=== PATIENT | female | born 2000 | race Caucasian/White ===

== ENCOUNTER → 2018-05-12 | Outpatient (CLI) | payer MEDICAID | END | disposition home or self-care (01) | LOC: U/S 15:06 | DX: O36.70X0 Maternal care for viable fetus in abdominal pregnancy, unspecified trimester, not applicable or unspecified (principal); Z3A.00 Weeks of gestation of pregnancy not specified | CPT/HCPCS: 76801 ==

== ENCOUNTER 2018-08-21 10:59 | Inpatient (IN) | payer MEDICAID ==
[2018-08-21] MEDS ORDERED: MISOPROSTOL 200 MCG TAB PR ×2 (11:30→18:00)
[2018-08-21] MEDS ORDERED: METHYLERGONOVINE 0.2 MG INJ IM ×2 (11:30→18:00)
[2018-08-21] MEDS ORDERED: CARBOPROST 250 MCG INJ IM ×2 (11:30→18:00)
[2018-08-21] MEDS: LACTATED RINGER'S 1,000 ML IV ×2 (11:32→18:09)
[2018-08-21 11:55] LABS: ADD MAN DIFF? NO
[2018-08-21 12:07] LABS: BASOPHILS % 0.2 % (0.0-2.0); EOSINOPHILS # 0.1 10^3/ul (0.0-0.5); EOSINOPHILS % 0.5 % (0.0-7.0); HEMATOCRIT 38.8 % (37.0-47.0); HEMOGLOBIN 12.9 g/dl (12.0-16.0); LYMPHOCYTES # 1.8 10^3/ul (0.8-2.9); LYMPHOCYTES % 18.9 % (18.0-55.0); MEAN CORPUSCULAR HEMOGLOBIN 30.1 pg (29.0-33.0); MEAN CORPUSCULAR HGB CONC 33.2 g/dl (32.0-37.0); MEAN CORPUSCULAR VOLUME 90.7 fl (72.0-104.0); MEAN PLATELET VOLUME 9.5 fl (7.4-10.4); MONOCYTE # 0.5 10^3/ul (0.3-0.9); MONOCYTES % 5.6 % (0.0-13.0); PLATELET COUNT 208 10^3/UL (140-415); RED BLOOD COUNT 4.28 10^6/ul (4.20-5.40); RED CELL DISTRIBUTION WIDTH 13.6 % (11.5-14.5)
[2018-08-21 12:07] LABS: WHITE BLOOD COUNT 9.5 10^3/ul (4.8-10.8)
[2018-08-21 12:20] LABS: INR 0.86; PROTIME 11.8 Sec (11.9-14.9); PT RATIO 0.9
[2018-08-21 12:21] LABS: PARTIAL THROMBOPLASTIN TIME 28.1 Sec (23.0-35.0)
[2018-08-21 12:59] LABS: HEPATITIS B SURFACE ANTIGEN NEGATIVE (NEGATIVE)
[2018-08-21] MEDS: CITRIC ACID/NA CITRATE 30 ML CUP PO (13:28)
[2018-08-21] MEDS: GENTAMICIN 80 MG/NS (PMX) 50 ML IVPB (13:29)
[2018-08-21] MEDS ORDERED: METOCLOPRAMIDE 10 MG INJ (14:16)
[2018-08-21] MEDS ORDERED: morphine SULFATE/PF (10 MG/10 ML) INJ (14:16)
[2018-08-21] MEDS ORDERED: KETOROLAC 30 MG INJ (14:16)
[2018-08-21] MEDS ORDERED: ONDANSETRON 4 MG INJ (14:16)
[2018-08-21] MEDS ORDERED: OXYTOCIN 30 UNITS/LR 500 ML IV ×3 (14:16→18:00)
[2018-08-21] MEDS: CLINDAMYCIN 900 MG/D5W (PMX) 50 ML IVPB ×2 (14:20→21:37)
[2018-08-21] MEDS: OXYTOCIN 30 UNITS/LR 500 ML IV (15:17)
[2018-08-21] MEDS ORDERED: KETOROLAC 30 MG INJ IV (15:30)
[2018-08-21] MEDS ORDERED: DIPHENHYDRAMINE 50 MG INJ IV ×2 (15:30→16:00)
[2018-08-21] MEDS ORDERED: ONDANSETRON 4 MG INJ IV ×2 (15:30→16:00)
[2018-08-21] MEDS ORDERED: morphine (1 MG/ML) 10ML SYRINGE IV ×3 (15:30)
[2018-08-21] MEDS ORDERED: NALOXONE (0.4 MG/ML) INJ IV (16:00)
[2018-08-21] MEDS ORDERED: morphine 2 MG INJ IV ×3 (16:00)
[2018-08-21 16:55] LABS: RAPID PLASMA REAGIN NONREACTIVE (NR)
[2018-08-21] MEDS ORDERED: GENTAMICIN 80 MG/NS (PMX) 50 ML IVPB (18:00)
[2018-08-21] MEDS ORDERED: NA PHOSPHATE/BIPHOS 133 ML ENEMA PR (18:00)
[2018-08-21] MEDS ORDERED: LANOLIN HPA 1 PKT TOP (18:00)
[2018-08-21] MEDS: KETOROLAC 30 MG INJ IV (18:03)
[2018-08-21] MEDS: SENNA/DOCUSATE NA (8.6MG/50MG) TAB PO (21:37)
[2018-08-22] MEDS: GENTAMICIN 80 MG/NS (PMX) 50 ML IVPB ×3 (00:14→16:32)
[2018-08-22] MEDS: KETOROLAC 30 MG INJ IV ×3 (01:40→13:34)
[2018-08-22] MEDS: LACTATED RINGER'S 1,000 ML IV ×3 (04:40→20:00)
[2018-08-22] MEDS: CLINDAMYCIN 900 MG/D5W (PMX) 50 ML IVPB ×2 (05:27→13:34)
[2018-08-22 08:10] LABS: ADD MAN DIFF? NO
[2018-08-22 08:18] LABS: WHITE BLOOD COUNT 11.8 10^3/ul (4.8-10.8)
[2018-08-22 08:18] LABS: BASOPHIL # 0.1 10^3/ul (0.0-0.1); BASOPHILS % 0.4 % (0.0-2.0); EOSINOPHILS # 0.1 10^3/ul (0.0-0.5); EOSINOPHILS % 0.4 % (0.0-7.0); HEMATOCRIT 32.3 % (37.0-47.0); HEMOGLOBIN 10.8 g/dl (12.0-16.0); LYMPHOCYTES # 2.3 10^3/ul (0.8-2.9); LYMPHOCYTES % 19.6 % (18.0-55.0); MEAN CORPUSCULAR HEMOGLOBIN 30.3 pg (29.0-33.0); MEAN CORPUSCULAR HGB CONC 33.4 g/dl (32.0-37.0); MEAN CORPUSCULAR VOLUME 90.7 fl (72.0-104.0); MEAN PLATELET VOLUME 9.6 fl (7.4-10.4); MONOCYTE # 0.8 10^3/ul (0.3-0.9); MONOCYTES % 6.8 % (0.0-13.0); NEUTROPHIL # 8.5 10^3/ul (1.6-7.5); NEUTROPHILS % 72.1 % (30.0-74.0); PLATELET COUNT 202 10^3/UL (140-415); RED BLOOD COUNT 3.56 10^6/ul (4.20-5.40); RED CELL DISTRIBUTION WIDTH 13.4 % (11.5-14.5)
[2018-08-22] MEDS: SENNA/DOCUSATE NA (8.6MG/50MG) TAB PO ×2 (08:32→19:41)
[2018-08-22] MEDS: BISACODYL 10 MG SUPP PR (16:32)
[2018-08-22] MEDS: CLINDAMYCIN 300 MG CAP PO ×2 (18:00→23:54)
[2018-08-22] MEDS: HYDROCODONE/APAP (5/325) TAB PO (19:41)
[2018-08-22] MEDS: IBUPROFEN 800 MG TAB PO (22:10)
[2018-08-23] MEDS: OXYCODONE/ACETAMINOPHEN (5/325) TAB PO ×3 (00:56→22:48)
[2018-08-23] MEDS: CLINDAMYCIN 300 MG CAP PO ×4 (05:38→23:46)
[2018-08-23] MEDS: IBUPROFEN 800 MG TAB PO ×3 (05:38→21:12)
[2018-08-23] MEDS: SENNA/DOCUSATE NA (8.6MG/50MG) TAB PO ×2 (09:05→21:12)
[2018-08-23] MEDS: HYDROCODONE/APAP (5/325) TAB PO (09:46)
[2018-08-23] MEDS: DIPHENHYDRAMINE 1%/ZINC 28.3 GM CR TOP ×2 (13:51→21:12)
[2018-08-24] MEDS: CLINDAMYCIN 300 MG CAP PO (05:30)
[2018-08-24] MEDS: IBUPROFEN 800 MG TAB PO (05:30)
[2018-08-24] MEDS: OXYCODONE/ACETAMINOPHEN (5/325) TAB PO (06:11)
[2018-08-24] MEDS: MEASLES,MUMPS,RUBELLA VACCINE INJ SC* (07:49)
[2018-08-24] MEDS: DIPHTH/TET/ACEL PERTUSS (ADULT) 0.5 ML VIAL IM* (07:49)
[2018-08-24] MEDS: DIPHENHYDRAMINE 1%/ZINC 28.3 GM CR TOP (08:43)
[2018-08-24] MEDS: SENNA/DOCUSATE NA (8.6MG/50MG) TAB PO (08:43)
[2018-08-24] MEDS: ACETAMINOPHEN 325 MG TAB PO (11:28)
== END 2018-08-24 12:15 | disposition home or self-care (01) | DRG 788 ==
LOC: L-D 10:59 → PP1 17:29
PROVIDERS: Obstetrics & Gynecology
PROC: 10D00Z1 Extraction of Products of Conception, Low, Open Approach (ICD-10-PCS; principal; 2018-08-21 14:00)
DX: O82 Encounter for cesarean delivery without indication (principal); Z3A.39 39 weeks gestation of pregnancy; Z37.0 Single live birth
CPT/HCPCS: 85025; 85610; 85730; 86592; 86850; 86900; 86901; 87340; 99464